=== PATIENT | female | born 1950 | race Caucasian/White ===

== ENCOUNTER 2020-12-29 16:24 | Emergency (ER) | payer MEDICARE, OTHER ==
[~2020-12-29 16:24] MED LIST: ALBUTEROL2.5 MG/3 M INH; ASPIRIN EC81 MG PO; ATIVAN0.5 MG PO; AUGMENTIN 875-1 EACH PO; CEFUROXIME500 MG PO; IBUPROFEN800 MG PO; KEPPRA 500 MG500 MG PO; NEURONTIN 300300 MG PO; NORCO 5-325 TA1 EACH PO; NORCO 7.5-3251 EACH PO; OMEPRAZOLE40 MG PO; OMNICEF 300 MG300 MG PO; PERCOCET 5-3251 EACH PO; PREDNISONE20 MG PO; PRINIVIL10 MG PO; PROVENTIL HFA6.7 GM INH; SEROQUEL100 MG PO; ZANTAC 7575 MG PO; ZITHROMAX500 MG PO; ZOFRAN4 MG PO; ZOLOFT100 MG PO
== END 2020-12-29 19:35 | disposition home or self-care (01) ==
LOC: ER1 16:24
DX: S39.012A Strain of muscle, fascia and tendon of lower back, initial encounter (principal); S80.02XA Contusion of left knee, initial encounter; S00.531A Contusion of lip, initial encounter; S40.022A Contusion of left upper arm, initial encounter; S50.311A Abrasion of right elbow, initial encounter; I10 Essential (primary) hypertension; J45.909 Unspecified asthma, uncomplicated; Y04.2XXA Assault by strike against or bumped into by another person, initial encounter; Y92.009 Unspecified place in unspecified non-institutional (private) residence as the place of occurrence of the external cause; Y07.03 Male partner, perpetrator of maltreatment and neglect
CPT/HCPCS: 71046; 72072; 72100; 73562; 99283

== ENCOUNTER 2021-07-11 12:50 | Emergency (ER) | payer MEDICARE, OTHER ==
[2021-07-11 14:15] LABS: HEMOGLOBIN 10.8 gm/dl (12.3-15.3); RED BLOOD COUNT 3.65 M/UL (4.00-5.10); WHITE BLOOD COUNT 7.9 K/UL (4.5-11.0)
== END 2021-07-11 17:33 | disposition home or self-care (01) ==
LOC: ER1 12:50
PROVIDERS: Student in an Organized Health Care Education/Training Program
DX: S01.01XA Laceration without foreign body of scalp, initial encounter (principal); I10 Essential (primary) hypertension; Z90.49 Acquired absence of other specified parts of digestive tract; Y08.89XA Assault by other specified means, initial encounter
CPT/HCPCS: 12001; 70450; 70498; 71045; 72125; 73030; 73060; 80053; 82550; 82553; 85025; 96374; 96375; 99284; J2270; J2405; Q9967